=== PATIENT | male | born 1970 | race Caucasian/White ===

== ENCOUNTER 2020-11-21 09:19 | Day surgery (SDC) | payer OTHER, SELFPAY ==
[~2020-11-21] VITALS: Ht 182.9 cm; Wt 120.2 kg
[2020-11-21] MEDS ORDERED: diphenhydrAMINE 50 MG/ML VIAL ONE (12:12)
[2020-11-21] MEDS ORDERED: MIDAZOLAM 5 MG/5 ML VIAL ONE (12:13)
[2020-11-21] MEDS ORDERED: LIDOCAINE 2% 100 MG/5 ML UJET TP ONE (12:13)
[2020-11-21] MEDS ORDERED: fentaNYL citrate 0.05 MG/ML VIAL ONE (12:13)
[2020-11-21] MEDS ORDERED: MIDAZOLAM 2 MG/2 ML VIAL IVP ONE (13:45)
[2020-11-21] MEDS ORDERED: fentaNYL citrate 0.05 MG/ML VIAL IVP ONE (13:45)
== END 2020-11-21 13:45 | disposition home or self-care (01) ==
LOC: MDS 09:19 → MMU 09:19 → MDS 13:45
PROVIDERS: ATTEND Internal Medicine Gastroenterology
DX: K59.00 Constipation, unspecified (principal); K63.5 Polyp of colon; K57.30 Diverticulosis of large intestine without perforation or abscess without bleeding; K57.32 Diverticulitis of large intestine without perforation or abscess without bleeding; Z80.0 Family history of malignant neoplasm of digestive organs; I10 Essential (primary) hypertension; E11.9 Type 2 diabetes mellitus without complications; Z86.73 Personal history of transient ischemic attack (TIA), and cerebral infarction without residual deficits; Z79.899 Other long term (current) drug therapy; Z20.822 Contact with and (suspected) exposure to COVID-19
CPT/HCPCS: 45385; J2250; J3010; U0003; J1200

== ENCOUNTER 2021-08-14 08:13 | Day surgery (SDC) | payer OTHER, SELFPAY ==
[~2021-08-14] VITALS: Ht 185.4 cm; Wt 120.2 kg
[2021-08-14] MEDS ORDERED: MIDAZOLAM 5 MG/5 ML VIAL ONE (10:29)
[2021-08-14] MEDS ORDERED: LIDOCAINE 2% 100 MG/5 ML UJET TP ONE (10:29)
[2021-08-14] MEDS ORDERED: fentaNYL citrate 0.05 MG/ML VIAL ONE (10:29)
[2021-08-14] MEDS ORDERED: fentaNYL citrate 0.05 MG/ML VIAL IVP ONE (10:55)
[2021-08-14] MEDS ORDERED: MIDAZOLAM 2 MG/2 ML VIAL IVP ONE (10:55)
== END 2021-08-14 12:09 | disposition home or self-care (01) ==
LOC: MDS 08:13 → MMU 08:14 → MDS 12:09
PROVIDERS: ATTEND Internal Medicine Gastroenterology
DX: K59.00 Constipation, unspecified (principal); Z86.010 Personal history of colon polyps; I10 Essential (primary) hypertension; Z80.0 Family history of malignant neoplasm of digestive organs; E11.9 Type 2 diabetes mellitus without complications; Z87.891 Personal history of nicotine dependence; Z79.82 Long term (current) use of aspirin; Z79.899 Other long term (current) drug therapy; Z20.822 Contact with and (suspected) exposure to COVID-19
CPT/HCPCS: 45378; 87426; G0378; J2250; J3010